=== PATIENT | female | born 1995 ===

== ENCOUNTER 2017-06-17 20:23 | Emergency (ER) | payer OTHER ==
--- NOTE | 2017-06-17 22:15 | UC ---
HPI Febrile Illness - HPI Summary HPI Summary: 21 yo WF p/w f/c/bodyaches, and hoarse voice x 2 days, just started yesterday but worsening - History of Current Complaint Chief Complaint: UCRespiratory Time Seen by Provider: 06/17/17 22:04 Hx Obtained From: Patient Hx Last Menstrual Period: 3 wks ago Onset/Duration: Started Days Ago Timing: Constant Initial Severity: Moderate Current Severity: Moderate Pain Intensity: 7 - Allergy/Home Medications Allergies/Adverse Reactions: Allergies Allergy/AdvReac Type Severity Reaction Status Date / Time No Known Allergies Allergy Verified 06/17/17 20:45 Home Medications: Home Medications Aspirin/Acetaminophen/Caffeine [Excedrin Migraine Caplet] 2 tab PO ONCE [History Confirmed 06/17/17] PMH/Surg Hx/FS Hx/Imm Hx - Additional Past Medical History Additional PMH: none Previously Healthy: Yes - Surgical History Surgical History: None - Social History Alcohol Use: Occasionally Substance Use Type: None Smoking Status (MU): Never Smoked Tobacco Review of Systems Constitutional: Fever, Chills, Fatigue Eyes: Negative ENT: Sore Throat, Other - hoarse voice Respiratory: Cough Cardiovascular: Chest Pain - with cough Motor: Negative Neurovascular: Negative Musculoskeletal: Myalgia Neurological: Negative All Other Systems Reviewed And Are Negative: Yes Physical Exam Triage Information Reviewed: Yes Appearance: Ill-Appearing Vital Signs: Initial Vital Signs Temp 38.7 C 06/17/17 20:42 Pulse 126 06/17/17 20:42 Resp 18 06/17/17 20:42 BP 117/58 06/17/17 20:42 Pulse Ox 96 06/17/17 20:42 Vital Signs Reviewed: Yes Eye Exam: Normal ENT Exam: Normal ENT: Positive: Pharyngeal erythema, Nasal congestion, Nasal drainage, Hoarse voice Dental Exam: Normal Neck exam: Normal Neck: Positive: 1 Respiratory Exam: Normal Respiratory: Positive: Lungs clear Cardiovascular Exam: Normal Abdominal Exam: Normal Musculoskeletal: Positive: Other: - diffuse muscle tenderness Neurological Exam: Normal Psychological Exam: Normal Skin Exam: Normal Course/Dx - Course Course Of Treatment: Rapid flu positive for Flu A - Diagnoses Clinic Provider Diagnoses: influenza A Discharge - Discharge Plan Condition: Stable Disposition: HOME Prescriptions: Oseltamivir CAP* [Tamiflu CAP*] 75 mg PO BID 5 Days #10 cap Referrals: No Primary Care Phys,NOPCP [Primary Care Provider] - Additional Instructions: PO hydration and Tamiflu as directed
[2017-06-17] MEDS ORDERED: Oseltamivir CAP* 75 MG CAP PO ONE (22:53)
[2017-06-17] MEDS ORDERED: Ibuprofen TAB* 200 MG PO ONE (22:56)
[2017-06-17 22:59] VITALS: BP 105/48
[2017-06-17] MEDS ORDERED: Ibuprofen TAB* 200 MG ONE (23:01)
== END 2017-06-17 23:08 | disposition home or self-care (01) ==
LOC: UCEAST 20:23
DX: J10.1 Influenza due to other identified influenza virus with other respiratory manifestations (principal)
CPT/HCPCS: 87502; 99202; A9270-GY; G0463